=== PATIENT | male | born 1985 | race Two or more races ===

== ENCOUNTER 2025-04-09 16:07 | Emergency (ER) | payer MEDICAID, OTHER ==
[~2025-04-09] VITALS: Ht 175.3 cm; Wt 88.5 kg
[2025-04-09 16:15] VITALS: TEMP 98.2
[2025-04-09 16:35] VITALS: BP 139/85; O2SAT 98
[2025-04-09] MEDS ORDERED: IV NS 0.9% 1,000 ML BAG IV ONE (17:00)
[2025-04-09] MEDS ORDERED: METOCLOPRAMIDE HCL 10 MG/2 ML VIAL IV ONE (17:00)
== END 2025-04-09 17:57 | disposition left against medical advice (07) ==
LOC: ER 16:11
DX: R51.9 Headache, unspecified (principal); R11.2 Nausea with vomiting, unspecified